=== PATIENT | male | born 1965 | race American Indian/Alaskan Native ===

== ENCOUNTER 2020-06-08 14:12 | Inpatient (IN) | payer OTHER ==
[~2020-06-08 14:12] MED LIST: HEPARIN 10,000 UNITS/10 ML VIAL IV ONE; fentaNYL 100 MCG/2 ML INJ IV ONE
[2020-06-08] MEDS ORDERED: MORPHINE 4 MG/1 ML INJ IV ONE (14:25)
[2020-06-08] MEDS ORDERED: ONDANSETRON 4 MG/2 ML INJ IV ONE (14:26)
[2020-06-08] MEDS ORDERED: HEPARIN/NS 5000 UNIT/500ML 1,000 ML IR ONE (14:30)
[2020-06-08] MEDS ORDERED: HEPARIN 1,000 UNIT/1 ML VIAL IV ONE (14:30)
[2020-06-08] MEDS ORDERED: NITROGLYCERIN SYRINGE 3 ML ONE (14:31)
[2020-06-08] MEDS ORDERED: MIDAZOLAM 2 MG/2 ML INJ ONE ×2 (14:31→14:59)
[2020-06-08] MEDS ORDERED: VERAPAMIL 5 MG/2 ML INJ ONE (14:31)
[2020-06-08] MEDS ORDERED: fentaNYL 100 MCG/2 ML INJ ONE ×3 (14:31→14:59)
[2020-06-08] MEDS ORDERED: SODIUM CHLORIDE 0.9% 1000 ML 1,000 ML ONE ×2 (14:32→17:14)
[2020-06-08] MEDS ORDERED: NITROGLYCERIN 2% OINT 1 GM TP ONE (14:37)
--- NOTE | 2020-06-08 14:37 | Emergency Department Report ---
ED Chest Pain HPI - General Chief Complaint: Chest Pain Stated Complaint: CHEST PAIN Time Seen by Provider: 06/08/20 14:31 Source: patient, EMS Mode of arrival: Stretcher Limitations: No Limitations - History of Present Illness Initial Comments: This is a 55-year-old man who is status post a PCI at [place] approximately 3 weeks ago. He is a poorly cooperative historian. He does appear to be in substantial pain from an acute coronary syndrome. His EKG was consistent with anterior ST elevation PR. I obtained the EKG from the transporting medics but d id not have access to it prior. The first 2 EKGs were consistent enough to call a STEMI code which was done. The EKGs were text to the on-call software trainer. Repeat EKG was done promptly upon gurney placement. In my opinion it was consistent with anterior STEMI. This was also text to the under trimmer Dr. Dewey who agrees with transfer to the Engineering [facility]. I accompanied the patient to the Engineering Drafter until Dr. Dewey was physically present. Patient continued to be quite anxious. He was somewhat diaphoretic. He was given a titrated dose of analgesia (morphine). He had already received 4 baby aspirin in the field. He was given 4000 units of heparin IV bolus. Patient seen to be stating that his first cath was in 2012. Apparently he has had 2 prior PCI's. He appears to have told the medics that he had 1 additional blocked vessel seen on cardiac cath at [place] which was not stented. Patient denied any recent substance abuse. He states he "smokes a cigar every now and then". Complaint: chest pain (Onset 1/2-hour prior to medic arrival) -: Gradual, hour(s) Onset: during rest Pain Location: substernal Pain Radiation: RUE Severity: severe Severity scale (0 -10): 10 Quality: other (Patient would not describe but states similar to prior pre-PCI pain) Consistency: constant Improves With: nothing Worsens With: nothing Context: other (Coronary artery disease) re: diaphoresis, dyspnea Other Symptoms: denies: cough, fever, syncope Treatments Prior to Arrival: aspirin - Related Data Allergies Allergy/AdvReac Type Severity Reaction Status Date / Time No Known Allergies Allergy Unverified 06/08/20 14:25 Heart Score - HEART Score History: Highly suspicious EKG: Significant ST-depression Age: 45-65 Risk factors: > 3 risk factors or hx of atherosclerotic disease Troponin: 1-3x normal limit HEART Score: 8 - EKG Read Time Time EKG Completed: 14:16 (Approximate) EKG Read Time: 14:16 (Read immediately) - Critical Actions Critical Actions: >7 pts:50-65% risk of adverse cardiac event. Early invasive measures ED Review of Systems ROS: Stated complaint: CHEST PAIN Other details as noted in HPI Comment: Unobtainable due to pts medical conditions ED Past Medical Hx - Past Medical History Hx Hypertension: Yes - Surgical History Hx Coronary Stent: Yes (x2) - Social History Smoking Status: Current Some Day Smoker Substance Use Type: None ED Physical Exam - General Limitations: Physical Limitation General appearance: alert, other (And the stress) - Head Head exam: Present: atraumatic, normocephalic - Eye Eye exam: Present: normal appearance. Absent: scleral icterus - ENT ENT exam: Present: mucous membranes moist - Neck Neck exam: Present: normal inspection - Respiratory Respiratory exam: Present: normal lung sounds bilaterally. Absent: respiratory distress - Cardiovascular Cardiovascular Exam: Present: regular rate, normal rhythm. Absent: systolic murmur, diastolic murmur, rubs, gallop - GI/Abdominal GI/Abdominal exam: Present: soft, normal bowel sounds. Absent: distended, tenderness, guarding, rebound - Rectal Rectal exam: Present: deferred - Extremities Exam Extremities exam: Present: normal inspection - Back Exam Back exam: Present: normal inspection - Neurological Exam Neurological exam: Present: alert, oriented X3, CN II-XII intact (As tested). Absent: motor sensory deficit - Psychiatric Psychiatric exam: Present: agitated, anxious - Skin Skin exam: Present: warm, dry, intact, normal color. Absent: rash ED Course Vital Signs 06/08/20 06/08/20 06/08/20 14:13 14:22 14:32 Temperature 99 F Pulse Rate 110 H 112 H 111 H Respiratory 22 22 25 H Rate Blood Pressure 141/93 146/92 149/99 [Left] O2 Sat by Pulse 100 100 100 Oximetry - Reevaluation(s) Reevaluation #1: Patient arrived in the emergency department demanding immediate treatment by a software trainer in the Engineering Dra[facility]. He felt certain he was having a recurrent PR. Cardiology was contacted prior to patient encounter. Prehospital EKGs were text. The patient was quite expeditiously transferred to the Engineering Drafter. I accompanied him to the Engineering Drafter to have physician oversight there while he was prepped by the assessment technician. He was given analgesia and heparin. He remained hemodynamically stable. arrived and assumed care. 06/08/20 15:01 YENY score - Yeny Score Age > 65: (0) No Aspirin use within the Past 7 Days: (1) Yes 3 or more CAD Risk Factors: (1) Yes 2 or more Angina events in past 24 hrs: (0) No Known CAD with more than 50% Stenosis: (1) Yes Elevated Cardiac Markers: (1) Yes ST Deviation Greater than 0.5mm: (1) Yes (Troponin not yet known) YENY Score: 5 ED Medical Decision Making - Lab Data Result diagrams: 06/08/20 14:23 Laboratory Results - last 24 hr 06/08/20 06/08/20 06/08/20 14:23 14:23 14:23 WBC 5.6 RBC 4.48 Hgb 15.9 H Hct 45.7 H MCV 102 H MCH 35 H MCHC 35 H RDW 14.2 Plt Count 287 Lymph % (Auto) 37.8 H [place] % (Auto) 10.5 H Eos % (Auto) 0.6 Baso % (Auto) 0.9 Lymph # (Auto) 2.1 [place] # (Auto) 0.6 Eos # (Auto) 0.0 Baso # (Auto) 0.1 Seg Neutrophils % 50.2 Seg Neutrophils # 2.8 PT 11.8 L INR 0.89 APTT 26.8 Sodium 135 L Potassium 3.4 L Chloride 98.7 Carbon Dioxide 26 Anion Gap 14 BUN 14 Creatinine 1.1 Estimated GFR > 60 BUN/Creatinine Ratio 13 Glucose 139 H Calcium 9.4 Magnesium Total Bilirubin AST ALT Alkaline Phosphatase Total Creatine Kinase CK-MB (CK-2) CK-MB (CK-2) Rel Index Troponin T 0.099 H NT-Pro-B Natriuret Pep Total Protein Albumin Albumin/Globulin Ratio 06/08/20 14:23 WBC RBC Hgb Hct MCV MCH MCHC RDW Plt Count Lymph % (Auto) [place] % (Auto) Eos % (Auto) Baso % (Auto) Lymph # (Auto) [place] # (Auto) Eos # (Auto) Baso # (Auto) Seg Neutrophils % Seg Neutrophils # PT INR APTT Sodium Potassium Chloride Carbon Dioxide Anion Gap BUN Creatinine Estimated GFR BUN/Creatinine Ratio Glucose Calcium Magnesium 2.10 Total Bilirubin 0.70 AST 29 ALT 21 Alkaline Phosphatase 97 Total Creatine Kinase 621 H CK-MB (CK-2) 7.8 H CK-MB (CK-2) Rel Index 1.2 Troponin T NT-Pro-B Natriuret Pep 1621 H Total Protein 6.8 Albumin 4.1 Albumin/Globulin Ratio 1.5 - EKG Data -: EKG Interpreted by Me EKG shows normal: sinus rhythm Rate: normal - EKG Data ST elevation noted in the anterior leads consistent with anterior STEMI pattern 06/08/20 15:05 Critical Care Time: Yes Critical care time in (mins) excluding proc time.: 40 Critical care attestation.: If time is entered above; I have spent that time in minutes in the direct care of this critically ill patient, excluding procedure time. ED Disposition Clinical Impression: ST elevation PR (STEMI) Qualifiers: Involved coronary artery: unspecified coronary artery Qualified Code(s): I21.3 - ST elevation (STEMI) myocardial infarction of unspecified site Disposition: OP ADMIT IP TO THIS HOSP Is pt being admited?: Yes Does the pt Need Aspirin: Yes Condition: Stable Time of Disposition: 15:06
[2020-06-08 14:44] LABS: Basophils # (Auto) 0.1 K/mm3 (0.0-0.1); Basophils % (Auto) 0.9 % (0.0-1.8); Eosinophils % (Auto) 0.6 % (0.0-4.3); Hematocrit 45.7 % (35.5-45.6); Hemoglobin 15.9 gm/dl (11.8-15.2); Lymphocytes # (Auto) 2.1 K/mm3 (1.2-5.4); Lymphocytes % (Auto) 37.8 % (13.4-35.0); Mean Corpuscular HGB Conc 35 % (32-34); Mean Corpuscular Volume 102 fl (84-94); Monocytes # (Auto) 0.6 K/mm3 (0.0-0.8); Monocytes % (Auto) 10.5 % (0.0-7.3); Platelet Count 287 K/mm3 (140-440); Red Blood Count 4.48 M/mm3 (3.65-5.03); Red Cell Distribution Width 14.2 % (13.2-15.2)
[2020-06-08] MEDS ORDERED: MORPHINE 2 MG/1 ML INJ ONE (14:44)
[2020-06-08] MEDS ORDERED: MORPHINE 2 MG/1 ML INJ IV ONE ×2 (14:44→22:56)
[2020-06-08 14:55] LABS: INR 0.89 (0.87-1.13)
[2020-06-08 14:56] LABS: Partial Thromboplastin Time 26.8 Sec. (24.2-36.6)
[2020-06-08] MEDS ORDERED: ONDANSETRON 4 MG/2 ML INJ ONE (14:59)
[2020-06-08 15:00] LABS: BUN/Creatinine Ratio 13; Blood Urea Nitrogen 14 mg/dL (9-20); Calcium 9.4 mg/dL (8.4-10.2); Creatine Kinase MB 7.8 ng/mL (0.0-4.0); Hemolysis Index 4
[2020-06-08 15:02] LABS: Alanine Aminotransferase 21 units/L (7-56); Albumin 4.1 g/dL (3.9-5)
[2020-06-08] MEDS: LIDOCAINE (2%) 20 MG/1 ML VIAL 20 ML MDV INFILTRATI ONE ×2 (15:03→15:35)
[2020-06-08] MEDS: HEPARIN 10,000 UNITS/10 ML VIAL ONE ×3 (15:05→15:47)
--- NOTE | 2020-06-08 15:08 | History and Physical Report ---
History of Present Illness Date of examination: 06/08/20 Date of admission: 06/08/2020 Chief complaint: Severe chest pain for 30 minutes prior to ED arrival History of present illness: 55-year-old AAM who is status post a PCI at [place] approximately 3 weeks ago with 2 stents comes in for severe substernal chest pain since am.Pain is 10/10.Diahoresis present .No radiation.Some SOB present.Pain is sharp in nature .EMS sent a EKG which was consitent with Acute ND and COde STEMI was initiated.Was taken to photo lab specialist directly.Had a obstructed diagonal which was stented.LAD stents were patent.Pain started 40 minutes prior to arrival. Patient continued to be quite anxious. He was somewhat diaphoretic. He was given a titrated dose of analgesia (morphine). He had already received 4 baby aspirin in the field. He was given 4000 units of heparin IV bolus. Patient denied any recent substance abuse. He states he "smokes a cigar every now and then". Heart Score - HEART Score History: Highly suspicious EKG: Significant ST-depression Age: 45-65 Risk factors: > 3 risk factors or hx of atherosclerotic disease Troponin: 1-3x normal limit HEART Score: 8 - EKG Read Time Time EKG Completed: 14:16 (Approximate) EKG Read Time: 14:16 (Read immediately) - Critical Actions Critical Actions: >7 pts:50-65% risk of adverse cardiac event. Early invasive measures - Past Medical History --Hypertension: Yes - Surgical History --Coronary Stent: Yes (x2) - Social History Smoking Status: Current Some Day Smoker Substance Use Type: None Review of Systems ROS: Stated complaint: CHEST PAIN Other details as noted in HPI Comment: Unobtainable due to pts medical conditions Medications and Allergies Allergies Allergy/AdvReac Type Severity Reaction Status Date / Time No Known Allergies Allergy Unverified 06/08/20 14:25 Exam - Constitutional Vitals: Temp Pulse Resp BP Pulse Ox 99 F 111 H 25 H 149/99 100 06/08/20 14:13 06/08/20 14:32 06/08/20 14:32 06/08/20 14:32 06/08/20 14:32 General appearance: Present: severe distress, well-nourished - EENT Eyes: Present: PERRL ENT: hearing intact, clear oral mucosa - Neck Neck: Present: supple, normal ROM - Respiratory Respiratory effort: normal Respiratory: bilateral: CTA - Cardiovascular Heart rate: 110 Rhythm: regular Heart Sounds: Present: S1 & S2. Absent: rub, click - Extremities Extremities: no ischemia, pulses intact, pulses symmetrical, No edema Peripheral Pulses: within normal limits - Abdominal General gastrointestinal: Present: soft, non-tender, non-distended, normal bowel sounds Male genitourinary: Present: normal - Integumentary Integumentary: Present: clear, warm, dry - Musculoskeletal Musculoskeletal: gait normal, strength equal bilaterally - Psychiatric Psychiatric: appropriate mood/affect, intact judgment & insight - Neurologic Neurologic: CNII-XII intact, moves all extremities - Allied Health Allied health notes reviewed: nursing, case management HEART Score - HEART Score EKG: Significant ST-depression Age: 45-65 Risk factors: > 3 risk factors or hx of atherosclerotic disease Troponin: Troponin T 0.099 ng/mL (0.00-0.029) H 06/08/20 14:23 Troponin: 1-3x normal limit - Critical Actions Critical Actions: >7 pts:50-65% risk of adverse cardiac event. Early invasive measures Results - Labs CBC & Chem 7: 06/09/20 04:36 06/09/20 04:36 Labs: Laboratory Last Values WBC 5.6 K/mm3 (4.5-11.0) 06/08/20 14:23 RBC 4.48 M/mm3 (3.65-5.03) 06/08/20 14:23 Hgb 15.9 gm/dl (11.8-15.2) H 06/08/20 14:23 Hct 45.7 % (35.5-45.6) H 06/08/20 14:23 MCV 102 fl (84-94) H 06/08/20 14:23 MCH 35 pg (28-32) H 06/08/20 14:23 MCHC 35 % (32-34) H 06/08/20 14:23 RDW 14.2 % (13.2-15.2) 06/08/20 14:23 Plt Count 287 K/mm3 (140-440) 06/08/20 14:23 Lymph % (Auto) 37.8 % (13.4-35.0) H 06/08/20 14:23 [place] % (Auto) 10.5 % (0.0-7.3) H 06/08/20 14:23 Eos % (Auto) 0.6 % (0.0-4.3) 06/08/20 14:23 Baso % (Auto) 0.9 % (0.0-1.8) 06/08/20 14:23 Lymph # (Auto) 2.1 K/mm3 (1.2-5.4) 06/08/20 14:23 [place] # (Auto) 0.6 K/mm3 (0.0-0.8) 06/08/20 14:23 Eos # (Auto) 0.0 K/mm3 (0.0-0.4) 06/08/20 14:23 Baso # (Auto) 0.1 K/mm3 (0.0-0.1) 06/08/20 14:23 Seg Neutrophils % 50.2 % (40.0-70.0) 06/08/20 14:23 Seg Neutrophils # 2.8 K/mm3 (1.8-7.7) 06/08/20 14:23 PT 11.8 Sec. (12.2-14.9) L 06/08/20 14:23 INR 0.89 (0.87-1.13) 06/08/20 14:23 APTT 26.8 Sec. (24.2-36.6) 06/08/20 14:23 Sodium 135 mmol/L (137-145) L 06/08/20 14:23 Potassium 3.4 mmol/L (3.6-5.0) L 06/08/20 14:23 Chloride 98.7 mmol/L (98-107) 06/08/20 14:23 Carbon Dioxide 26 mmol/L (22-30) 06/08/20 14:23 Anion Gap 14 mmol/L 06/08/20 14:23 BUN 14 mg/dL (9-20) 06/08/20 14:23 Creatinine 1.1 mg/dL (0.8-1.3) 06/08/20 14:23 Estimated GFR > 60 ml/min 06/08/20 14:23 BUN/Creatinine Ratio 13 % 06/08/20 14:23 Glucose 139 mg/dL (75-100) H 06/08/20 14:23 Calcium 9.4 mg/dL (8.4-10.2) 06/08/20 14:23 Magnesium 2.10 mg/dL (1.7-2.3) 06/08/20 14:23 Total Bilirubin 0.70 mg/dL (0.1-1.2) 06/08/20 14:23 AST 29 units/L (5-40) 06/08/20 14:23 ALT 21 units/L (7-56) 06/08/20 14:23 Alkaline Phosphatase 97 units/L (35-129) 06/08/20 14:23 Total Creatine Kinase 621 units/L (55-170) H 06/08/20 14:23 CK-MB (CK-2) 7.8 ng/mL (0.0-4.0) H 06/08/20 14:23 CK-MB (CK-2) Rel Index 1.2 (0-4) 06/08/20 14:23 Troponin T 0.099 ng/mL (0.00-0.029) H 06/08/20 14:23 NT-Pro-B Natriuret Pep 1621 pg/mL (0-900) H 06/08/20 14:23 Total Protein 6.8 g/dL (6.3-8.2) 06/08/20 14:23 Albumin 4.1 g/dL (3.9-5) 06/08/20 14:23 Albumin/Globulin Ratio 1.5 % 06/08/20 14:23 Short CBC 06/08/20 06/09/20 Range/Units 14:23 04:36 WBC 5.6 6.0 (4.5-11.0) K/mm3 Hgb 15.9 H 13.8 (11.8-15.2) gm/dl Hct 45.7 H 40.4 (35.5-45.6) % Plt Count 287 254 (140-440) K/mm3 BMP 06/08/20 06/09/20 14:23 04:36 Sodium 135 L 135 L Potassium 3.4 L 3.8 Chloride 98.7 102.7 Carbon Dioxide 26 23 BUN 14 10 Creatinine 1.1 1.0 Glucose 139 H 128 H Calcium 9.4 8.5 Cardiac Enzymes 06/08/20 06/08/20 06/08/20 Range/Units 14:23 14:23 19:08 Total Creatine Kinase 621 H (55-170) units/L CK-MB (CK-2) 7.8 H (0.0-4.0) ng/mL Troponin T 0.099 H 1.250 H* D (0.00-0.029) ng/mL 06/08/20 Range/Units 22:50 Total Creatine Kinase (55-170) units/L CK-MB (CK-2) (0.0-4.0) ng/mL Troponin T 2.140 H* D (0.00-0.029) ng/mL Liver Function 06/08/20 06/09/20 Range/Units 14:23 04:36 Total Bilirubin 0.70 0.80 (0.1-1.2) mg/dL Direct Bilirubin < 0.2 (0-0.2) mg/dL AST 29 113 H (5-40) units/L ALT 21 29 (7-56) units/L Alkaline Phosphatase 97 76 (35-129) units/L Albumin 4.1 3.2 L (3.9-5) g/dL Urine 06/08/20 Range/Units 14:32 Urine Color Straw (Yellow) Urine pH 7.0 (5.0-7.0) Ur Specific [place] 1.049 H (1.003-1.030) Urine Protein <15 mg/dl (Negative) mg/dL Urine Glucose (UA) 50 (Negative) mg/dL - Imaging and Cardiology EKG: report reviewed (Ant erior STEMI ) Chest x-ray: report reviewed (NAF) Assessment and Plan Assessment and plan: CCT 40 minutes Advance Directives: Yes (Full code) VTE prophylaxis?: Chemical Plan of care discussed with patient/family: Yes - Patient Problems (1) STEMI (ST elevation myocardial infarction) Current Visit: Yes Status: Acute Qualifiers: Involved coronary artery: other coronary artery Qualified Code(s): I21.29 - ST elevation (STEMI) myocardial infarction involving other sites Plan to address problem: Diagonal was obstructed Had PCI and was stented D/w Cardiology Dr Dewey Patient to be on Brilinta Bid Aggrastat was given in photo lab specialist. Cont ICU monitoring (2) HTN (hypertension) Current Visit: Yes Status: Chronic Qualifiers: Hypertension type: essential hypertension Qualified Code(s): I10 - Essential (primary) hypertension Plan to address problem: Cont Beta fe and ACEI (3) CAD (coronary artery disease) Current Visit: Yes Status: Acute Qualifiers: Coronary Disease-Associated Artery/Lesion type: [place] artery [place] vs. transplanted heart: [place] heart Associated angina: with unstable angina Qualified Code(s): I25.110 - Atherosclerotic heart disease of [place] coronary artery with unstable angina pectoris Plan to address problem: Patient had PCI today with 3 rd stent in Diagonal ASA and Brilinta for now High intensity statins (4) Hypokalemia Current Visit: Yes Status: Acute Plan to address problem: Supplemented (5) Hyponatremia Current Visit: Yes Status: Acute Plan to address problem: Mild IV NS for now (6) Malnutrition Current Visit: Yes Status: Chronic Qualifiers: Protein-calorie malnutrition severity: mild Plan to address problem: Dietary supplements (7) Cocaine abuse Current Visit: Yes Status: Chronic Plan to address problem: Counselled about possible vasospasm and ND (8) Nicotine dependence Current Visit: Yes Status: Chronic Qualifiers: Nicotine product type: cigarettes Plan to address problem: On Nicoderm patch (9) DVT prophylaxis Current Visit: Yes Status: Acute Plan to address problem: On Brilinta and GI prophylaxis
[2020-06-08 15:09] LABS: Bilirubin,Direct < 0.2 mg/dL (0-0.2)
[2020-06-08] MEDS ORDERED: MORPHINE 4 MG/1 ML INJ IV PRN (15:30)
[2020-06-08] MEDS ORDERED: ACETAMINOPHEN 325 MG TAB PO PRN (15:30)
[2020-06-08] MEDS ORDERED: ONDANSETRON 4 MG/2 ML INJ IV PRN (15:30)
[2020-06-08] MEDS ORDERED: oxyCODONE /ACETAMINOPHEN 5-325MG TAB PO PRN (15:30)
[2020-06-08] MEDS ORDERED: SODIUM CHLORIDE 0.9% 1000 ML 1,000 ML IV SCH (15:30)
[2020-06-08] MEDS ORDERED: HEPARIN/NS 5000 UNIT/500ML 500 ML IR ONE (15:31)
[2020-06-08] MEDS ORDERED: TIROFIBAN/NS 12,500 MCG/250 ML BAG IV ONE (15:41)
[2020-06-08] MEDS ORDERED: EPINEPHrine 1 MG/10 ML SYRINGE ONE (15:53)
[2020-06-08] MEDS ORDERED: PHENYLEPHRINE/NS 1,000 MCG/10 ML SYRINGE (OR USE) IV ONE (15:53)
[2020-06-08] MEDS ORDERED: LIDOCAINE PF 100 MG/5 ML (CARDIAC SYRINGE) IV ONE (15:53)
[2020-06-08] MEDS ORDERED: ATROPINE 0.1% (1 MG/10 ML) CARDIAC SYRINGE ONE (15:53)
[2020-06-08] MEDS ORDERED: TICAGRELOR 90 MG TAB ONE (16:23)
[2020-06-08] MEDS ORDERED: ALUM-MAG HYDROXIDE-SIMETHICONE 200-200-20MG/5ML ORAL LIQD 30 ML ONE (16:24)
[2020-06-08] MEDS ORDERED: MORPHINE 2 MG/1 ML INJ IV PRN ×3 (17:02→22:38)
[2020-06-08] MEDS: METOPROLOL SUCCINATE XL 50 MG TAB PO SCH (19:10)
--- NOTE | 2020-06-08 19:21 | Cardiac Catherization Report ---
CARDIAC CATHETERIZATION REPORT CLINICAL INFORMATION: The patient is a pleasant 55-year-old -[place] male admitted with chest pains. Apparently, he called EMS with severe chest pains, EKG demonstrated dynamic ST changes in the anterolateral leads. According to him he had a heart catheterization as well as stents placement in [place] approximately 3-4 weeks ago. He is a tobacco smoker, has a history of hypertension and dyslipidemia. I am not sure whether he is compliant with medications-especially DAPT. He continues to smoke tobacco after coronary stenting procedure. Reviewed his clinical presentation, EKG, after extensive discussion with the patient, we agreed to pursue for diagnostic cardiac catheterization. Risks, benefits and different options were extensively discussed with the patient. PROCEDURES PERFORMED TODAY: 1. Left heart catheterization. 2. Selective coronary angiogram. 3. LV angiogram. 4. PCI to ostium of the diagonal branch with the deployment of 2.5 x 12 mm Resolute Tavernier CORNELIA. Kissing balloons performed with 3.5 x 12 mm balloon in the mid LAD, 2.5 x 8 mm noncompliant balloon at the ostium of the diagonal branch. 5. Intracoronary nitroglycerin. DESCRIPTION OF PROCEDURE: We started the procedure with a right radial access. The right wrist area cleaned and draped in a sterile fashion. 2% lidocaine was used for local anesthesia. The right radial artery was accessed with a micropuncture needle, 6-Eston[place] slender sheath was inserted. Radial cocktail was given through the sheath. Able to engage the right coronary artery with a 5-[place] JR4 diagnostic catheter. Unable to engage left main coronary artery with multiple catheters. These are the catheters that were tried, which included JL3.5, 6-[place] JR4 diagnostic catheter. Tried EBU 3.5 guiding catheter, tried radial catheters as well as a 6-Estonian AL1 guiding catheter. Also tried XB LAD, not successful. At that point, we switched to femoral access. Right groin area was already prepped. 2% lidocaine was used for local anesthesia. Right femoral artery was accessed with a Cook needle by modified Seldinger technique and a 6-E[place]ian short sheath inserted. Able to selectively engage the left main coronary artery with 6-Estonian XB LAD 3.0 guiding catheter. Selective angiograms of the left coronary systems were obtained. After reviewing the diagnostic angiographic images, we proceeded for intervention to the ostium of the diagonal branch. HEART CATHETERIZATION FINDINGS: Left main coronary artery is a large caliber vessel, free of disease. Left circumflex coronary artery has multiple intraluminal irregularities in the proximal and distal part. Proximal stent in the left circumflex coronary artery has a mild-moderate in-stent stenosis approximately 40% in severity. OM1 is a small caliber vessel with diffuse disease. OM2 is a medium caliber vessel, which is a basically continuation of the left circumflex coronary artery, free of disease. Mid LAD has a widely patent stent noted. The principal diagonal branch is jailed, ostium has a thrombus noted with a 99% stenosis. Right coronary artery is a large caliber vessel, proximal and mid segments have approximately 60% stenosis, junction of the mid and distal segment is 100% occluded. There are left to right collaterals noted. LV ANGIOGRAM: LV angiogram was obtained in MCRAE projection. Left ventricular ejection fraction is 45%. LVEDP -- 33 mmHg. PCI to the ostium of the diagonal branch:- The patient was given heparin as an anticoagulant, maintained ACT above 200, also given 2 boluses of Aggrastat IV. The ostium of the diagonal branch was successfully crossed with a 0.014 BMW wire. Predilated with a 2.5 mm compliant balloon. Subsequently, noted to have residual stenosis, more than 70% at the ostium of the diagonal branch. At that point, I decided to stent the ostium of the diagonal branch. A 0.014 Runthrough wire was placed in the LAD. A 3.5 x 12 mm noncompliant balloon placed in the LAD, subsequently ostium of the principal diagonal branch is stented with a 2.5 x 12 mm Resolute Tavernier drug-eluting stent. The stent balloon is removed, wire was removed and the ostial stent is crushed with mid LAD balloon. After that ostial stent of the diagonal branch stent is re-crossed with a 0.014 BMW wire. Kissing balloons were performed with a 2.5 x 8 mm noncompliant balloon balloon in the ostium of the diagonal branch and 3.5 x 12 mm balloon in the mid LAD. Intracoronary nitroglycerin was given. Post-intervention angiograms demonstrated residual stenosis of 0% at the ostium of the diagonal branch with YENY-3 flow. The patient tolerated the procedure very well. While calculating the [id number] time, please consider the difficulties that I had in engaging the left main coronary artery via right radial access, multiple catheters were tried, not successful. Subsequently changed to right femoral approach. CONCLUSIONS: 1. The above study showed moderate disease in the left circumflex coronary system with a 40% in-stent stenosis in the proximally placed stent. 2. Patent stent noted in the mid LAD. 3. Ostium of the diagonal branch has 90% stenosis with haziness noted to have thrombus. Subsequently, that area was stented with 2.5 x 12 mm Resolute Tavernier drug-eluting stent, kissing balloons were performed with balloon in the mid LAD as well as a balloon at the ostium of the diagonal branch and results were excellent with YENY 3 flow in the diagonal branch. Junction of the mid and distal RCA is 100% occluded, which is a chronic total occlusion, left to right collaterals noted. LVEF 45%, LVEDP -- 33 mmHg. RECOMMENDATIONS: 1. Aspirin 81 mg p.o. every day, uninterruptedly for the rest of the life. 2. Brilinta 90 mg p.o. b.i.d., uninterruptedly for at least 1 year. 3. Aggressive statin therapy, optimal blood pressure control. 4. Echo to evaluate LVEF as well as PA pressures. Tobacco cessation, adherence to medical therapy, especially DAPT-will determine his long-term overall prognosis, explained to the patient. The patient is going to be admitted to ICU, the sheath in the right groin will be removed once ACT is less than 150, the patient was explained. All these events were explained to the patient as well as his , Ana Maria Rubi at [phone]. Thanks for letting me to participate in the care of the patient. JOB# [id number] RONNA/ALISTAIR CLEMENTS
[2020-06-08 20:57] LABS: Chol/HDL Ratio 2.89 %
[2020-06-08 21:42] LABS: Bilirubin,Urine NEG (Negative); Blood,Urine SM (Negative); Color,Urine Straw (Yellow); Mucus,Urine FEW /HPF; Protein,Urine <15 mg/dL mg/dL (Negative); Urobilinogen,Urine < 2.0 mg/dL (<2.0)
[2020-06-08] MEDS: TICAGRELOR 90 MG TAB PO SCH (21:45)
[2020-06-08 21:51] LABS: Amphetamine Screen,Urine Negative; Cannabinoid Screen,Urine Negative; Methadone Screen,Urine Negative; Opiate Screen,Urine Negative
[2020-06-08 22:15] LABS: Benzodiazepines Screen,Urine Positive; Cocaine Screen,Urine Positive
--- NOTE | 2020-06-08 22:35 | XRay Report ---
CHEST 1 VIEW INDICATION / CLINICAL INFORMATION: post pci. COMPARISON: None available. FINDINGS: SUPPORT DEVICES: None. HEART / MEDIASTINUM: No significant abnormality. LUNGS / PLEURA: No significant pulmonary or pleural abnormality. No pneumothorax. ADDITIONAL FINDINGS: No significant additional findings. IMPRESSION: No acute pulmonary or pleural abnormality Signer Name: Jhonathan James MD FACR Signed: 06/08/2020 10:30 PM Workstation Name: [id number]
[2020-06-09 04:47] LABS: Basophils % (Auto) 0.6 % (0.0-1.8); Eosinophils % (Auto) 0.5 % (0.0-4.3); Hematocrit 40.4 % (35.5-45.6); Hemoglobin 13.8 gm/dl (11.8-15.2); Lymphocytes # (Auto) 0.9 K/mm3 (1.2-5.4); Lymphocytes % (Auto) 14.2 % (13.4-35.0); Mean Corpuscular HGB Conc 34 % (32-34); Mean Corpuscular Volume 102 fl (84-94); Monocytes # (Auto) 0.6 K/mm3 (0.0-0.8); Monocytes % (Auto) 9.5 % (0.0-7.3); Platelet Count 254 K/mm3 (140-440); Red Blood Count 3.97 M/mm3 (3.65-5.03); Red Cell Distribution Width 14.2 % (13.2-15.2)
[2020-06-09 05:10] LABS: Alanine Aminotransferase 29 units/L (7-56); Albumin 3.2 g/dL (3.9-5); BUN/Creatinine Ratio 10; Blood Urea Nitrogen 10 mg/dL (9-20); Calcium 8.5 mg/dL (8.4-10.2); Hemolysis Index 6
[2020-06-09] MEDS: HYDROcodone/ACETAMINOPHEN 5-325 MG TAB PO PRN ×2 (08:43→17:55)
[2020-06-09] MEDS: ASPIRIN EC 81 MG TAB PO SCH (09:52)
[2020-06-09] MEDS: METOPROLOL SUCCINATE XL 50 MG TAB PO SCH (09:52)
[2020-06-09] MEDS: TICAGRELOR 90 MG TAB PO SCH ×2 (09:53→22:50)
--- NOTE | 2020-06-09 10:45 | Progress Note ---
Assessment and Plan Acute RI s/p PCI of the diagonal branch using Resolute drug eluting stents patent mid LAD stent mild in-stent restenosis of the proximal LCx chronic occlusion of the distal RCA with [id number]-[id number] collaterals EF 45% Anterior STEMI at [facility] 05/16/2020 s/p PCI of the mid LAD LVEF 30% by echo 05/16/2020 noncompliant with Effient since discharged from [facility] 05/17/2020 Poly-substance abuse Recommend: Patient reports noncompliance with Effient due to cost. Will recommend social media campaign manager consultation for assistance with Brilinta to take for 1 year. Continue current medical therapy. Okay for transfer to telemetry. Subjective Date of service: 06/09/20 Interval history: Patient is resting in bed comfortably. He denies chest pain. No hematoma or edema of right groin cath site Objective Vital Signs Temp Pulse Pulse Resp BP BP Pulse Ox 06/09/20 10:20 71 19 115/71 98 06/09/20 10:10 79 22 111/60 97 06/09/20 10:00 87 25 H 111/60 87 06/09/20 09:52 83 117/57 06/09/20 09:50 85 17 117/57 100 06/09/20 09:40 80 24 108/65 99 06/09/20 09:30 76 18 108/65 98 06/09/20 09:20 75 22 116/70 99 06/09/20 09:10 91 H 26 H 123/90 100 06/09/20 09:00 98 H 22 128/92 99 06/09/20 08:50 88 32 H 128/92 100 06/09/20 08:43 20 06/09/20 08:40 96 H 22 121/80 99 06/09/20 08:30 96 H 18 121/80 100 06/09/20 08:25 99 06/09/20 08:20 82 24 121/80 100 06/09/20 08:10 82 19 116/72 100 06/09/20 08:00 97.9 F 82 82 20 116/72 100 06/09/20 07:50 94 H 23 122/78 100 06/09/20 07:40 84 21 124/78 99 06/09/20 07:30 85 22 124/78 99 06/09/20 07:20 83 15 116/70 99 06/09/20 07:10 85 24 124/71 99 06/09/20 07:00 81 19 124/71 99 06/09/20 06:50 94 H 19 125/75 100 06/09/20 06:40 91 H 18 128/68 99 06/09/20 06:30 83 21 128/68 99 06/09/20 06:20 82 20 128/68 100 06/09/20 06:10 82 22 128/68 99 06/09/20 06:00 84 22 128/68 100 06/09/20 05:50 80 20 128/68 100 06/09/20 05:40 83 20 128/68 100 06/09/20 05:30 78 20 128/68 100 06/09/20 05:20 81 21 128/68 100 06/09/20 05:10 88 13 128/68 100 06/09/20 05:00 84 19 128/68 99 06/09/20 04:50 80 22 125/68 98 06/09/20 04:40 78 22 98 06/09/20 04:30 88 16 133/85 100 06/09/20 04:20 74 20 133/85 99 06/09/20 04:10 78 19 135/83 98 06/09/20 04:00 98.4 F 81 76 21 135/83 99 06/09/20 03:50 81 20 133/77 99 06/09/20 03:40 77 23 137/82 99 06/09/20 03:30 88 22 137/82 100 06/09/20 03:20 81 22 135/78 99 06/09/20 03:10 85 23 135/82 99 06/09/20 03:00 80 22 135/82 98 06/09/20 02:50 84 23 139/83 97 06/09/20 02:40 80 20 136/79 98 06/09/20 02:30 77 20 136/79 99 06/09/20 02:20 78 18 124/80 99 06/09/20 02:10 79 22 132/87 98 06/09/20 02:00 81 19 132/87 100 06/09/20 01:50 72 17 134/79 99 06/09/20 01:40 87 24 135/83 99 06/09/20 01:30 83 21 135/83 98 06/09/20 01:20 83 15 125/80 98 06/09/20 01:10 82 17 131/79 99 06/09/20 01:00 83 19 131/79 100 06/09/20 00:50 87 21 138/79 99 06/09/20 00:40 84 19 133/74 99 06/09/20 00:30 77 20 133/74 100 06/09/20 00:20 85 22 133/82 99 06/09/20 00:10 86 20 130/82 99 06/09/20 00:00 98.7 F 90 93 H 23 130/82 99 06/08/20 23:50 85 21 128/80 98 06/08/20 23:40 88 23 125/80 100 06/08/20 23:30 86 16 125/80 99 06/08/20 23:20 87 21 131/77 100 06/08/20 23:10 87 21 123/74 100 06/08/20 23:06 89 20 123/74 100 06/08/20 23:00 85 15 123/74 100 06/08/20 22:57 22 06/08/20 22:56 90 20 129/88 06/08/20 22:50 85 20 129/88 98 06/08/20 22:40 88 22 133/88 97 06/08/20 22:30 88 24 133/88 100 06/08/20 22:20 84 20 128/88 100 06/08/20 22:10 87 19 118/81 98 06/08/20 22:00 93 H 14 118/81 100 06/08/20 21:55 14 06/08/20 21:50 94 H 12 129/81 06/08/20 21:42 96 06/08/20 21:40 90 19 130/94 96 06/08/20 21:30 93 H 31 H 130/94 97 06/08/20 21:20 91 H 16 115/94 99 06/08/20 21:10 89 16 130/89 99 06/08/20 21:00 88 20 130/89 98 06/08/20 20:50 94 H 16 124/75 98 06/08/20 20:40 89 16 121/87 97 06/08/20 20:30 97 H 19 121/87 98 06/08/20 20:20 81 21 129/85 98 06/08/20 20:10 100 H 22 123/88 97 06/08/20 20:00 98.1 F 99 H 90 17 123/88 98 06/08/20 19:50 86 14 127/85 98 06/08/20 19:40 96 H 16 125/81 97 06/08/20 19:30 94 H 18 119/81 98 06/08/20 19:20 96 H 22 132/84 97 06/08/20 19:10 94 H 13 131/89 98 06/08/20 19:00 97 H 20 131/89 97 06/08/20 18:50 101 H 18 132/94 97 06/08/20 18:40 97 H 19 129/92 98 06/08/20 18:30 100 H 21 129/92 99 06/08/20 18:21 92 H 06/08/20 18:20 101 H 20 135/86 99 06/08/20 18:10 102 H 21 137/91 100 06/08/20 18:00 102 H 20 137/91 99 06/08/20 17:50 102 H 20 119/86 06/08/20 17:43 130/87 06/08/20 16:56 100 H 06/08/20 14:32 111 H 25 H 149/99 100 06/08/20 14:22 112 H 22 146/92 100 06/08/20 14:13 99 F 110 H 22 141/93 100 - Labs and Meds Cardiac Enzymes 06/08/20 06/09/20 Range/Units 14:23 04:36 AST 29 113 H (5-40) units/L CK-MB (CK-2) 7.8 H (0.0-4.0) ng/mL Coagulation 06/08/20 Range/Units 14:23 PT 11.8 L (12.2-14.9) Sec. INR 0.89 (0.87-1.13) APTT 26.8 (24.2-36.6) Sec. Lipids 06/08/20 Range/Units 19:08 Triglycerides 62 (2-149) mg/dL Cholesterol 194 (50-199) mg/dL HDL Cholesterol 67 H (40-59) mg/dL Cholesterol/HDL Ratio 2.89 % CBC 06/08/20 06/09/20 Range/Units 14:23 04:36 WBC 5.6 6.0 (4.5-11.0) K/mm3 RBC 4.48 3.97 (3.65-5.03) M/mm3 Hgb 15.9 H 13.8 (11.8-15.2) gm/dl Hct 45.7 H 40.4 (35.5-45.6) % Plt Count 287 254 (140-440) K/mm3 Lymph # (Auto) 2.1 0.9 L (1.2-5.4) K/mm3 [place] # (Auto) 0.6 0.6 (0.0-0.8) K/mm3 Eos # (Auto) 0.0 0.0 (0.0-0.4) K/mm3 Baso # (Auto) 0.1 0.0 (0.0-0.1) K/mm3 Comprehensive Metabolic Panel 06/08/20 06/08/20 06/09/20 Range/Units 14:23 14:23 04:36 Sodium 135 L 135 L (137-145) mmol/L Potassium 3.4 L 3.8 (3.6-5.0) mmol/L Chloride 98.7 102.7 (98-107) mmol/L Carbon Dioxide 26 23 (22-30) mmol/L BUN 14 10 (9-20) mg/dL Creatinine 1.1 1.0 (0.8-1.3) mg/dL Glucose 139 H 128 H (75-100) mg/dL Calcium 9.4 8.5 (8.4-10.2) mg/dL Direct Bilirubin < 0.2 (0-0.2) mg/dL Indirect Bilirubin 0.5 mg/dL AST 29 113 H (5-40) units/L ALT 21 29 (7-56) units/L Alkaline Phosphatase 97 76 (35-129) units/L Total Protein 6.8 6.0 L (6.3-8.2) g/dL Albumin 4.1 3.2 L (3.9-5) g/dL - Imaging and Cardiology EKG: report reviewed (Ant erior STEMI )
[2020-06-09] MEDS: FAMOTIDINE 20 MG TAB PO SCH (11:03)
--- NOTE | 2020-06-09 11:03 | Event Note ---
Date: 06/09/20 Patient with known CAD, acute PR a few weeks ago at [facility] and noncompliant with anticoagulation who presented yesterday with STEMI secondary to in stent thrombosis. Taken to slab inspector and reperfused, now with no chest pain. UDS was positive for Cocaine. Currently on all oral therapy and vitals are stable. Will ask cardiology about transfer to [facility], needs psych consult/eval for substance abuse.
--- NOTE | 2020-06-09 14:37 | Progress Note ---
Assessment and Plan Assessment and plan: -Cardiology and CCM consulted, appreciate recommendations -S/p PCI with CORNELIA x1 -UDS positive for benzodiazepine and cocaine -Cardiac diet -Aspirin, Lipitor, metoprolol, Brilinta -CM consulted for medical compliance -Morphine and nitroglycerin ointment as needed -Monitor blood pressure and titrate hypertensive as needed (patient takes lisinopril 10 mg at home) GI/DVT prophylaxis: Brilinta/aspirin, SCDs to bilateral lower extremities while in bed, PPI Disposition: Transfer to floor History Interval history: This is a 55-year-old male with CAD, hypertension, medical noncompliance and polysubstance abuse who had a PCI at [place] [facility] approximately 3 weeks ago who pr esented to the emergency department on 06/08 with complaints of sharp chest pain rated at 10/10 with diaphoresis and shortness of breath. EMS sent an EKG which was consistent with acute MA and code STEMI was initiated and was taken to the Quality Control Microbiologist. Left heart cath revealed obstructed diagonal branch which was stented, his mid LAD stent was patent however there was mild in-stent restenosis of the proximal left circumflex and there was chronic occlusion of the distal RCA with geio-hp-lhbzz collaterals. His ejection fraction was 45%. STEMI s/p PCI with CORNELIA x1 CAD Anterior STEMI (05/16/2020) Hypertension Polysubstance abuse 06/09: Patient complained of chest pain overnight and he received morphine. Patient does not complain of any chest pain, respiratory distress, nausea or vomiting this morning the time my examination. He is on room air. He complains of pain to groin entry site with palpation directly over site. Cardiology has cleared patient to transfer to the floor. His UDS was positive for cocaine and benzodiazepines. His morning the patient has slight hyponatremia and his hypo kalemia has resolved. Hospitalist Physical - Constitutional Vitals: Temp Pulse Resp BP Pulse Ox 98.8 F 86 16 118/82 99 06/09/20 12:00 06/09/20 14:10 06/09/20 14:10 06/09/20 14:10 06/09/20 14:10 General appearance: Present: no acute distress, well-nourished - EENT Eyes: Present: PERRL, EOM intact ENT: clear oral mucosa, dentition normal - Neck Neck: Present: normal ROM - Respiratory Respiratory effort: normal Respiratory: bilateral: CTA - Cardiovascular Rhythm: regular Heart Sounds: Present: S1 & S2. Absent: systolic murmur, diastolic murmur - Extremities Extremities: no ischemia, pulses intact, pulses symmetrical, No edema, normal temperature, normal color, Full ROM Peripheral Pulses: within normal limits - Abdominal General gastrointestinal: soft, non-tender, non-distended, normal bowel sounds - Integumentary Integumentary: Present: warm, dry - Psychiatric Psychiatric: appropriate mood/affect, cooperative - Neurologic Neurologic: CNII-XII intact, no focal deficits, moves all extremities - Allied Health Allied health notes reviewed: nursing, social work, case management HEART Score - HEART Score EKG: Significant ST-depression Age: 45-65 Risk factors: > 3 risk factors or hx of atherosclerotic disease Troponin: Troponin T 2.140 ng/mL (0.00-0.029) H* D 06/08/20 22:50 Troponin: 1-3x normal limit - Critical Actions Critical Actions: >7 pts:50-65% risk of adverse cardiac event. Early invasive measures Results - Labs CBC & Chem 7: 06/09/20 04:36 06/09/20 04:36 Labs: Laboratory Last Values WBC 6.0 K/mm3 (4.5-11.0) 06/09/20 04:36 RBC 3.97 M/mm3 (3.65-5.03) 06/09/20 04:36 Hgb 13.8 gm/dl (11.8-15.2) 06/09/20 04:36 Hct 40.4 % (35.5-45.6) 06/09/20 04:36 MCV 102 fl (84-94) H 06/09/20 04:36 MCH 35 pg (28-32) H 06/09/20 04:36 MCHC 34 % (32-34) 06/09/20 04:36 RDW 14.2 % (13.2-15.2) 06/09/20 04:36 Plt Count 254 K/mm3 (140-440) 06/09/20 04:36 Lymph % (Auto) 14.2 % (13.4-35.0) 06/09/20 04:36 [place] % (Auto) 9.5 % (0.0-7.3) H 06/09/20 04:36 Eos % (Auto) 0.5 % (0.0-4.3) 06/09/20 04:36 Baso % (Auto) 0.6 % (0.0-1.8) 06/09/20 04:36 Lymph # (Auto) 0.9 K/mm3 (1.2-5.4) L 06/09/20 04:36 [place] # (Auto) 0.6 K/mm3 (0.0-0.8) 06/09/20 04:36 Eos # (Auto) 0.0 K/mm3 (0.0-0.4) 06/09/20 04:36 Baso # (Auto) 0.0 K/mm3 (0.0-0.1) 06/09/20 04:36 Seg Neutrophils % 75.2 % (40.0-70.0) H 06/09/20 04:36 Seg Neutrophils # 4.5 K/mm3 (1.8-7.7) 06/09/20 04:36 PT 11.8 Sec. (12.2-14.9) L 06/08/20 14:23 INR 0.89 (0.87-1.13) 06/08/20 14:23 APTT 26.8 Sec. (24.2-36.6) 06/08/20 14:23 Activated Clotting Time 136 (74-137) 06/08/20 19:39 Sodium 135 mmol/L (137-145) L 06/09/20 04:36 Potassium 3.8 mmol/L (3.6-5.0) 06/09/20 04:36 Chloride 102.7 mmol/L (98-107) 06/09/20 04:36 Carbon Dioxide 23 mmol/L (22-30) 06/09/20 04:36 Anion Gap 13 mmol/L 06/09/20 04:36 BUN 10 mg/dL (9-20) 06/09/20 04:36 Creatinine 1.0 mg/dL (0.8-1.3) 06/09/20 04:36 Estimated GFR > 60 ml/min 06/09/20 04:36 BUN/Creatinine Ratio 10 % 06/09/20 04:36 Glucose 128 mg/dL (75-100) H 06/09/20 04:36 Hemoglobin A1c 5.1 % (4-6) 06/09/20 04:36 Calcium 8.5 mg/dL (8.4-10.2) 06/09/20 04:36 Magnesium 2.10 mg/dL (1.7-2.3) 06/08/20 14:23 Total Bilirubin 0.80 mg/dL (0.1-1.2) 06/09/20 04:36 Direct Bilirubin < 0.2 mg/dL (0-0.2) 06/08/20 14:23 Indirect Bilirubin 0.5 mg/dL 06/08/20 14:23 AST 113 units/L (5-40) H 06/09/20 04:36 ALT 29 units/L (7-56) 06/09/20 04:36 Alkaline Phosphatase 76 units/L (35-129) 06/09/20 04:36 Total Creatine Kinase 621 units/L (55-170) H 06/08/20 14:23 CK-MB (CK-2) 7.8 ng/mL (0.0-4.0) H 06/08/20 14:23 CK-MB (CK-2) Rel Index 1.2 (0-4) 06/08/20 14:23 Troponin T 2.140 ng/mL (0.00-0.029) H* D 06/08/20 22:50 NT-Pro-B Natriuret Pep 1621 pg/mL (0-900) H 06/08/20 14:23 Total Protein 6.0 g/dL (6.3-8.2) L 06/09/20 04:36 Albumin 3.2 g/dL (3.9-5) L 06/09/20 04:36 Albumin/Globulin Ratio 1.1 % 06/09/20 04:36 Triglycerides 62 mg/dL (2-149) 06/08/20 19:08 Cholesterol 194 mg/dL (50-199) 06/08/20 19:08 LDL Cholesterol Direct 113 mg/dL (50-130) 06/08/20 19:08 HDL Cholesterol 67 mg/dL (40-59) H 06/08/20 19:08 Cholesterol/HDL Ratio 2.89 % 06/08/20 19:08 Urine Color Straw (Yellow) 06/08/20 14:32 Urine Turbidity Clear (Clear) 06/08/20 14:32 Urine pH 7.0 (5.0-7.0) 06/08/20 14:32 Ur Specific [place] 1.049 (1.003-1.030) H 06/08/20 14:32 Urine Protein <15 mg/dl mg/dL (Negative) 06/08/20 14:32 Urine Glucose (UA) 50 mg/dL (Negative) 06/08/20 14:32 Urine Ketones Neg mg/dL (Negative) 06/08/20 14:32 Urine Blood Sm (Negative) 06/08/20 14:32 Urine Nitrite Neg (Negative) 06/08/20 14:32 Urine Bilirubin Neg (Negative) 06/08/20 14:32 Urine Urobilinogen < 2.0 mg/dL (<2.0) 06/08/20 14:32 Ur Leukocyte Esterase Neg (Negative) 06/08/20 14:32 Urine WBC (Auto) 2.0 /HPF (0.0-6.0) 06/08/20 14:32 Urine RBC (Auto) 4.0 /HPF (0.0-6.0) 06/08/20 14:32 Urine Mucus Few /HPF 06/08/20 14:32 Urine Opiates Screen Negative 06/08/20 14:32 Urine Methadone Screen Negative 06/08/20 14:32 Ur Barbiturates Screen Negative 06/08/20 14:32 Ur Phencyclidine Scrn Negative 06/08/20 14:32 Ur Amphetamines Screen Negative 06/08/20 14:32 U Benzodiazepines Scrn Positive 06/08/20 14:32 Urine Cocaine Screen Positive 06/08/20 14:32 U Marijuana (THC) Screen Negative 06/08/20 14:32 Drugs of Abuse Note Disclamer 06/08/20 14:32 [place]/IV: Voiding Method Urinal Active Medications - Current Medications Current Medications: Generic Name Dose Route Start Last Admin Trade Name Freq PRN Reason Stop Dose Admin Acetaminophen 650 mg 06/08/20 15:30 Acetaminophen 325 Mg Tab PO Q4H PRN Pain MILD(1-3)/Fever >100.5/PERRY Hydrocodone Bitart/Acetaminophen 1 each 06/08/20 16:56 06/09/20 08:43 Hydrocodone/Acetaminophen 5-325 Mg Tab PO 1 each Q8H PRN Administration Pain, Moderate (4-6) Aspirin 81 mg 06/09/20 10:00 06/09/20 09:52 Aspirin Ec 81 Mg Tab PO 81 mg QDAY ABDIAS Administration Atorvastatin Calcium 80 mg 06/08/20 22:00 06/08/20 21:45 Atorvastatin 40 Mg Tab PO 80 mg QHS ABDIAS Administration Famotidine 20 mg 06/09/20 12:00 06/09/20 11:03 Famotidine 20 Mg Tab PO 20 mg QDAY ABDIAS Administration Metoprolol Succinate 50 mg 06/08/20 18:00 06/09/20 09:52 Metoprolol Succinate Xl 50 Mg Tab PO 50 mg QDAY ABDIAS Administration Morphine Sulfate 2 mg 06/08/20 22:38 Morphine 2 Mg/1 Ml Inj IV Q4H PRN Pain, Moderate (4-6) Ondansetron HCl 4 mg 06/08/20 15:30 Ondansetron 4 Mg/2 Ml Inj IV Q8H PRN Nausea And Vomiting Sodium Chloride 10 ml 06/08/20 22:00 06/09/20 09:53 Sodium Chloride 0.9% 10 Ml Flush Syringe IV 10 ml BID ABDIAS Administration Sodium Chloride 10 ml 06/08/20 15:30 Sodium Chloride 0.9% 10 Ml Flush Syringe IV PRN PRN LINE FLUSH Ticagrelor 90 mg 06/08/20 22:00 06/09/20 09:53 Ticagrelor 90 Mg Tab PO 90 mg BID ABDIAS Administration
--- NOTE | 2020-06-10 09:03 | Progress Note ---
Assessment and Plan Assessment and plan: This is a 55-year-old male with CAD, hypertension, medical noncompliance and polysubstance abuse who had a PCI at [place] approximately 3 weeks ago who presented to the emergency department on 06/08 with complaints of sharp chest pain rated at 10/10 with diaphoresis and shortness of breath. EMS sent an EKG which was consistent with acute MS and code STEMI was initiated and was taken to the Instructor Military Science. Left heart cath revealed obstructed diagonal branch which was stented, his mid LAD stent was patent however there was mild in-stent restenosis of the proximal left circumflex and there was chronic occlusion of the distal RCA with [id number]-bp-[id number] collaterals. His ejection fraction was 45%. STEMI s/p PCI with CORNELIA x1 CAD Anterior STEMI (05/16/2020) Hypertension Polysubstance abuse 06/09: Patient complained of chest pain overnight and he received morphine. Patient does not complain of any chest pain, respiratory distress, nausea or vomiting this morning the time my examination. He is on room air. He complains of pain to groin entry site with palpation directly over site. Cardiology has cleared patient to transfer to the floor. His UDS was positive for cocaine and benzodiazepines. His morning the patient has slight hyponatremia and his hypokalemia has resolved. 06/10/2020 -Patient is admitted for STEMI due to in-stent thrombosis. Status post PCI with CORNELIA. Patient had stent recently and discharged with dual antiplatelet therapy but patient was noncompliant because could not afford it. Cardiology is following him. And will be discharged once cleared by cardiology. Case management consulted for medication assistance History Interval history: Patient was seen and evaluated this morning No chest pain or shortness of breath Hospitalist Physical - Physical exam Narrative exam: Not in cardiopulmonary distress. The patient appeared well nourished and normally developed. Vital signs as documented. Head exam is unremarkable. No scleral icterus . Neck is without jugular venous distension, thyromegaly, or carotid bruits. Lungs are clear to auscultation. Cardiac exam reveals regular rate and Rhythm. Abdominal exam reveals normal bowel sounds, nontender, no organomegaly. Extremities are nonedematous and both femoral and pedal pulses are normal. WET END SUPERVISOR: Alert and oriented 3. No focal weakness. - Constitutional Vitals: Temp Pulse Resp BP Pulse Ox 98.7 F 94 H 20 121/70 97 06/10/20 04:17 06/10/20 04:17 06/10/20 04:17 06/10/20 04:17 06/10/20 08:24 General appearance: Present: no acute distress, well-nourished HEART Score - HEART Score EKG: Significant ST-depression Age: 45-65 Risk factors: > 3 risk factors or hx of atherosclerotic disease Troponin: Troponin T 2.140 ng/mL (0.00-0.029) H* D 06/08/20 22:50 Troponin: 1-3x normal limit - Critical Actions Critical Actions: >7 pts:50-65% risk of adverse cardiac event. Early invasive measures Results - Labs CBC & Chem 7: 06/09/20 04:36 06/09/20 04:36 Labs: Laboratory Last Values WBC 6.0 K/mm3 (4.5-11.0) 06/09/20 04:36 RBC 3.97 M/mm3 (3.65-5.03) 06/09/20 04:36 Hgb 13.8 gm/dl (11.8-15.2) 06/09/20 04:36 Hct 40.4 % (35.5-45.6) 06/09/20 04:36 MCV 102 fl (84-94) H 06/09/20 04:36 MCH 35 pg (28-32) H 06/09/20 04:36 MCHC 34 % (32-34) 06/09/20 04:36 RDW 14.2 % (13.2-15.2) 06/09/20 04:36 Plt Count 254 K/mm3 (140-440) 06/09/20 04:36 Lymph % (Auto) 14.2 % (13.4-35.0) 06/09/20 04:36 [place] % (Auto) 9.5 % (0.0-7.3) H 06/09/20 04:36 Eos % (Auto) 0.5 % (0.0-4.3) 06/09/20 04:36 Baso % (Auto) 0.6 % (0.0-1.8) 06/09/20 04:36 Lymph # (Auto) 0.9 K/mm3 (1.2-5.4) L 06/09/20 04:36 [place] # (Auto) 0.6 K/mm3 (0.0-0.8) 06/09/20 04:36 Eos # (Auto) 0.0 K/mm3 (0.0-0.4) 06/09/20 04:36 Baso # (Auto) 0.0 K/mm3 (0.0-0.1) 06/09/20 04:36 Seg Neutrophils % 75.2 % (40.0-70.0) H 06/09/20 04:36 Seg Neutrophils # 4.5 K/mm3 (1.8-7.7) 06/09/20 04:36 PT 11.8 Sec. (12.2-14.9) L 06/08/20 14:23 INR 0.89 (0.87-1.13) 06/08/20 14:23 APTT 26.8 Sec. (24.2-36.6) 06/08/20 14:23 Activated Clotting Time 136 (74-137) 06/08/20 19:39 Sodium 135 mmol/L (137-145) L 06/09/20 04:36 Potassium 3.8 mmol/L (3.6-5.0) 06/09/20 04:36 Chloride 102.7 mmol/L (98-107) 06/09/20 04:36 Carbon Dioxide 23 mmol/L (22-30) 06/09/20 04:36 Anion Gap 13 mmol/L 06/09/20 04:36 BUN 10 mg/dL (9-20) 06/09/20 04:36 Creatinine 1.0 mg/dL (0.8-1.3) 06/09/20 04:36 Estimated GFR > 60 ml/min 06/09/20 04:36 BUN/Creatinine Ratio 10 % 06/09/20 04:36 Glucose 128 mg/dL (75-100) H 06/09/20 04:36 Hemoglobin A1c 5.1 % (4-6) 06/09/20 04:36 Calcium 8.5 mg/dL (8.4-10.2) 06/09/20 04:36 Magnesium 2.10 mg/dL (1.7-2.3) 06/08/20 14:23 Total Bilirubin 0.80 mg/dL (0.1-1.2) 06/09/20 04:36 Direct Bilirubin < 0.2 mg/dL (0-0.2) 06/08/20 14:23 Indirect Bilirubin 0.5 mg/dL 06/08/20 14:23 AST 113 units/L (5-40) H 06/09/20 04:36 ALT 29 units/L (7-56) 06/09/20 04:36 Alkaline Phosphatase 76 units/L (35-129) 06/09/20 04:36 Total Creatine Kinase 621 units/L (55-170) H 06/08/20 14:23 CK-MB (CK-2) 7.8 ng/mL (0.0-4.0) H 06/08/20 14:23 CK-MB (CK-2) Rel Index 1.2 (0-4) 06/08/20 14:23 Troponin T 2.140 ng/mL (0.00-0.029) H* D 06/08/20 22:50 NT-Pro-B Natriuret Pep 1621 pg/mL (0-900) H 06/08/20 14:23 Total Protein 6.0 g/dL (6.3-8.2) L 06/09/20 04:36 Albumin 3.2 g/dL (3.9-5) L 06/09/20 04:36 Albumin/Globulin Ratio 1.1 % 06/09/20 04:36 Triglycerides 62 mg/dL (2-149) 06/08/20 19:08 Cholesterol 194 mg/dL (50-199) 06/08/20 19:08 LDL Cholesterol Direct 113 mg/dL (50-130) 06/08/20 19:08 HDL Cholesterol 67 mg/dL (40-59) H 06/08/20 19:08 Cholesterol/HDL Ratio 2.89 % 06/08/20 19:08 Urine Color Straw (Yellow) 06/08/20 14:32 Urine Turbidity Clear (Clear) 06/08/20 14:32 Urine pH 7.0 (5.0-7.0) 06/08/20 14:32 Ur Specific [place] 1.049 (1.003-1.030) H 06/08/20 14:32 Urine Protein <15 mg/dl mg/dL (Negative) 06/08/20 14:32 Urine Glucose (UA) 50 mg/dL (Negative) 06/08/20 14:32 Urine Ketones Neg mg/dL (Negative) 06/08/20 14:32 Urine Blood Sm (Negative) 06/08/20 14:32 Urine Nitrite Neg (Negative) 06/08/20 14:32 Urine Bilirubin Neg (Negative) 06/08/20 14:32 Urine Urobilinogen < 2.0 mg/dL (<2.0) 06/08/20 14:32 Ur Leukocyte Esterase Neg (Negative) 06/08/20 14:32 Urine WBC (Auto) 2.0 /HPF (0.0-6.0) 06/08/20 14:32 Urine RBC (Auto) 4.0 /HPF (0.0-6.0) 06/08/20 14:32 Urine Mucus Few /HPF 06/08/20 14:32 Urine Opiates Screen Negative 06/08/20 14:32 Urine Methadone Screen Negative 06/08/20 14:32 Ur Barbiturates Screen Negative 06/08/20 14:32 Ur Phencyclidine Scrn Negative 06/08/20 14:32 Ur Amphetamines Screen Negative 06/08/20 14:32 U Benzodiazepines Scrn Positive 06/08/20 14:32 Urine Cocaine Screen Positive 06/08/20 14:32 U Marijuana (THC) Screen Negative 06/08/20 14:32 Drugs of Abuse Note Disclamer 06/08/20 14:32 Coronavirus (PCR) Negative (Negative) 06/09/20 Unknown [place]/IV: Voiding Method Urinal Active Medications - Current Medications Current Medications: Generic Name Dose Route Start Last Admin Trade Name Freq PRN Reason Stop Dose Admin Acetaminophen 650 mg 06/08/20 15:30 Acetaminophen 325 Mg Tab PO Q4H PRN Pain MILD(1-3)/Fever >100.5/PERRY Hydrocodone Bitart/Acetaminophen 1 each 06/08/20 16:56 06/09/20 17:55 Hydrocodone/Acetaminophen 5-325 Mg Tab PO 1 each Q8H PRN Administration Pain, Moderate (4-6) Aspirin 81 mg 06/09/20 10:00 06/09/20 09:52 Aspirin Ec 81 Mg Tab PO 81 mg QDAY ABDIAS Administration Atorvastatin Calcium 80 mg 06/08/20 22:00 06/09/20 22:49 Atorvastatin 40 Mg Tab PO 80 mg QHS ABDIAS Administration Clopidogrel Bisulfate 75 mg 06/10/20 10:00 Clopidogrel 75 Mg Tab PO QDAY ABDIAS Famotidine 20 mg 06/09/20 12:00 06/09/20 11:03 Famotidine 20 Mg Tab PO 20 mg QDAY ABDIAS Administration Metoprolol Succinate 50 mg 06/08/20 18:00 06/09/20 09:52 Metoprolol Succinate Xl 50 Mg Tab PO 50 mg QDAY ABDIAS Administration Morphine Sulfate 2 mg 06/08/20 22:38 06/09/20 23:05 Morphine 2 Mg/1 Ml Inj IV 2 mg Q4H PRN Administration Pain, Moderate (4-6) Ondansetron HCl 4 mg 06/08/20 15:30 Ondansetron 4 Mg/2 Ml Inj IV Q8H PRN Nausea And Vomiting Sodium Chloride 10 ml 06/08/20 22:00 06/09/20 22:50 Sodium Chloride 0.9% 10 Ml Flush Syringe IV 10 ml BID ABDIAS Administration Sodium Chloride 10 ml 06/08/20 15:30 Sodium Chloride 0.9% 10 Ml Flush Syringe IV PRN PRN LINE FLUSH
[2020-06-10 09:35] VITALS: BP 99/63
[2020-06-10] MEDS: CLOPIDOGREL 75 MG TAB PO SCH ×2 (10:25→11:38)
[2020-06-10] MEDS: FAMOTIDINE 20 MG TAB PO SCH (10:25)
[2020-06-10] MEDS: ASPIRIN EC 81 MG TAB PO SCH (10:25)
[2020-06-10] MEDS: METOPROLOL SUCCINATE XL 50 MG TAB PO SCH (10:26)
--- NOTE | 2020-06-10 10:29 | Discharge Summary ---
Providers - Providers Date of Admission: 06/08/20 15:09 Date of discharge: 06/10/20 Attending physician: QUYEN HORNER MD 06/08/20 15:09 Consult to Physician [CONS] Routine Comment: Consulting Provider: SHELTON NEGRO Physician Instructions: Reason For Exam: STEMI 06/08/20 16:56 Consult to Cardiac Rehabilitation [CONS] Routine Reason For Exam: Cardiac Rehab Evaluation 06/10/20 09:03 Consult to Case Management [CONS] Routine Services Needed at Discharge: Framing Mechanic Notified:: case management Comment:: Patient needs assistance with his medications. Primary care physician: CARE ANALYST Hospitalization Reason for admission: STEMI, in-stent thrombosis, cocaine Condition: Stable Hospital course: History of present illness: 55-year-old AAM who is status post a PCI at [place] approximately 3 weeks ago with 2 stents comes in for severe substernal chest pain since am.Pain is 10/10.Diahoresis present .No radiation.Some SOB present.Pain is sharp in nature .EMS sent a EKG which was consitent with Acute DE and COde STEMI was initiated.Was taken to medical laboratory technical officer directly.Had a obstructed diagonal which was stented.LAD stents were patent.Pain started 40 minutes prior to arrival. Patient continued to be quite anxious. He was somewhat diaphoretic. He was given a titrated dose of analgesia (morphine). He had already received 4 baby aspirin in the field. He was given 4000 units of heparin IV bolus. Patient denied any recent substance abuse. He states he "smokes a cigar every now and then". Hospital course This is a 55-year-old male with CAD, hypertension, medical noncompliance and polysubstance abuse who had a PCI at [place] approximately 3 weeks ago who presented to the emergency department on 06/08 with complaints of sharp chest pain rated at 10/10 with diaphoresis and shortness of breath. EMS sent an EKG which was consistent with acute DE and code STEMI was initiated and was taken to the [facility]. Left heart cath revealed obstructed diagonal branch which was stented, his mid LAD stent was patent however there was mild in-stent restenosis of the proximal left circumflex and there was chronic occlusion of the distal RCA with [id number] collaterals. His ejection fraction was 45%. STEMI s/p PCI with CORNEL[facility] x1 CAD Anterior STEMI (05/16/2020) Hypertension Polysubstance abuse 06/09: Patient complained of chest pain overnight and he received morphine. Patient does not complain of any chest pain, respiratory distress, nausea or vomiting this morning the time my examination. He is on room air. He complains of pain to groin entry site with palpation directly over site. Cardiology has cleared patient to transfer to the floor. His UDS was positive for cocaine and benzodiazepines. His morning the patient has slight hyponatremia and his hypokalemia has resolved. 06/10/2020 -Patient is admitted for STEMI due to in-stent thrombosis. Status post PCI with [facility]. Patient had stent recently and discharged with dual antiplatelet therapy but patient was noncompliant because could not afford it. Cardiology is following him. And will be discharged once cleared by cardiology. Case management consulted for medication assistance. -Case management is not able to arrange Brilinta and cardiology switch to Plavix. I give a prescription for aspirin and Plavix and other guideline medications for acute DE discharged. Patient was hemodynamically stable at the time of discharge. I have extensive counseling with the patient about to be compliant with his medications and he said he will be. He said he cannot afford Plavix. Disposition: [id number] TO HOME OR SELFCARE Final Discharge Diagnosis (Prints w/discharge instructions): In-stent thrombosis. STEMI. Cocaine abuse Time spent for discharge: 35-minutes - Discharge Diagnoses (1) STEMI (ST elevation myocardial infarction) Status: Acute Qualifiers: Involved coronary artery: other coronary artery Qualified Code(s): I21.29 - ST elevation (STEMI) myocardial infarction involving other sites (2) Cocaine abuse Status: Chronic (3) HTN (hypertension) Status: Chronic Qualifiers: Hypertension type: essential hypertension Qualified Code(s): I10 - Essential (primary) hypertension (4) Nicotine dependence Status: Chronic Qualifiers: Nicotine product type: cigarettes Core Measure Documentation - Palliative Care Palliative Care/ Comfort Measures: Not Applicable - Core Measures Any of the following diagnoses?: acute DE - Acute DE Discharge Requirements Aspirin at discharge: Yes PATRICK/ARB for LVSD if EF <40%: Yes Beta fe at discharge: Yes Statin for LDL = or >100 mg/dl on DC: Yes Exam - Physical Exam Narrative exam: Not in cardiopulmonary distress. The patient appeared well nourished and normally developed. Vital signs as documented. Head exam is unremarkable. No scleral icterus . Neck is without jugular venous distension, thyromegaly, or carotid bruits. Lungs are clear to auscultation. Cardiac exam reveals regular rate and Rhythm. Abdominal exam reveals normal bowel sounds, nontender, no organomegaly. Extremities are nonedematous and both femoral and pedal pulses are normal. ACCREDITATION MANAGER: Alert and oriented 3. No focal weakness. - Constitutional Vitals: Temp Pulse Resp BP Pulse Ox 98.4 F 89 18 99/63 97 06/10/20 09:26 06/10/20 09:26 06/10/20 09:26 06/10/20 09:26 06/10/20 09:26 Plan Activity: no restrictions Weight Bearing Status: Full Weight Bearing Diet: low cholesterol, low salt Health Concerns: Please take Plavix daily as prescribed by Doctor. Follow up with: PRIMARY MD CHRISTEL [Primary Care Provider] - 7 Days SHELTON NEGRO MD [Staff Physician] - 14 Days Prescriptions: AtorvaSTATin [Lipitor] 80 mg PO QHS #60 tablet Aspirin EC [Halfprin EC] 81 mg PO QDAY #30 tablet lisinopriL [Lisinopril] 10 mg PO DAILY #30 Metoprolol Xl [Metoprolol SUCCINATE ER TAB] 50 mg PO QDAY #30 tablet Clopidogrel [Plavix] 75 mg PO QDAY #30 tablet
--- NOTE | 2020-06-10 11:20 | Electrocardiograph Report ---
[facility] Test Date: 2020-06-08 Test Time: 14:23:34 Pat Name: MARIVEL MACARIO Department: Room: A463 Gender: M Extension Edger: MARION : 1965 Requested By: DONNA CURTIS Order Number: [id number] Reading MD: Donell Morrison Measurements Intervals [place] Rate: 112 P: 72 IA: 135 QRS: -47 QRSD: 75 T: QT: 352 QTc: 477 Interpretive Statements Sinus tachycardia Multiple ventricular premature complexes Probable left atrial enlargement Left anterior fascicular block Left ventricular hypertrophy Probable anterior infarct, age indeterminate Borderline ST elevation, lateral leads No previous ECG available for comparison Electronically Signed On 06-10-2020 11:19:43 EDT by Donell Morrison
--- NOTE | 2020-06-10 11:21 | Electrocardiograph Report ---
[facility] Test Date: 2020-06-08 Test Time: 18:18:32 Pat Name: MARIVEL MACARIO Department: Room: A463 Gender: M Grips: SANDEEP : 1965 Requested By: ALLEN SANTANA Order Number: [id number] Reading MD: Donell Morrison Measurements Intervals [place] Rate: 92 P: 60 CA: 152 QRS: -1 QRSD: 79 T: 133 QT: 367 QTc: 456 Interpretive Statements Sinus rhythm Ventricular premature complex Probable left atrial enlargement NONSPECIFIC REPOL ABNORMALITY, ANT-LAT LEADS No previous ECG available for comparison Electronically Signed On 06-10-2020 11:20:57 EDT by Donell Morrison
--- NOTE | 2020-06-10 11:23 | Electrocardiograph Report ---
[facility] Test Date: 2020-06-08 Test Time: 22:13:58 Pat Name: MARIVEL MACARIO Department: Room: A463 Gender: M Lodge Attendant: ANDERSON SEPTEMBER : 1965 Requested By: ALLEN SANTANA Order Number: [id number] Reading MD: Donell Morrison Measurements Intervals [place] Rate: 86 P: 58 OR: 147 QRS: 26 QRSD: 80 T: 141 QT: 406 QTc: 485 Interpretive Statements Sinus rhythm Paired ventricular premature complexes Probable anterior infarct, age indeterminate Lateral wall also involved No previous ECG available for comparison Electronically Signed On 06-10-2020 11:22:53 EDT by Donell Morrison
--- NOTE | 2020-06-10 11:24 | Progress Note ---
Assessment and Plan Acute [place] s/p PCI of the diagonal branch using Resolute drug eluting stents patent mid LAD stent mild in-stent restenosis of the proximal LCx chronic occlusion of the distal RCA with [id number] collaterals EF 45% Anterior STEMI at [facility] 05/16/2020 s/p PCI of the mid LAD LVEF 30% by echo 05/16/2020 noncompliant with Effient since discharged from [facility] 05/17/2020 Poly-substance abuse Recommend: Patient is unable to afford Brilinta, and is unable to receive prescription assistance. Therefore, will switch Brilinta to Plavix 75 mg once daily. Patient advised to continue medical therapy for coronary artery disease including DAPT without interruption. Encouraged smoking cessation. Stable cardiac rea, for discharge today with outpatient cardiac followup in 5-7 days. Subjective Date of service: 06/10/20 Interval history: Patient denies chest pain and denies shortness of breath. Patient is unable to afford Brilinta, and is unable to receive prescription assistance. Therefore, will switch Brilinta to Plavix 75 mg once daily. Objective Vital Signs Temp Pulse Pulse Resp BP Pulse Ox 06/10/20 10:26 89 99/63 06/10/20 09:26 98.4 F 89 18 99/63 97 06/10/20 08:24 97 06/10/20 04:17 98.7 F 94 H 20 121/70 95 06/10/20 00:11 98.8 F 97 H 20 126/78 96 06/09/20 21:27 98.4 F 83 20 113/70 95 06/09/20 21:14 86 06/09/20 20:30 85 13 111/69 96 06/09/20 20:20 86 26 H 101/62 98 06/09/20 20:10 80 17 104/64 90 06/09/20 20:00 83 31 H 105/66 97 06/09/20 19:50 84 30 H 105/66 98 06/09/20 19:40 84 26 H 104/65 98 06/09/20 19:30 87 27 H 104/65 97 06/09/20 19:20 84 15 108/69 99 06/09/20 19:10 85 16 116/80 99 06/09/20 19:00 88 13 106/68 99 06/09/20 18:50 82 27 H 107/55 97 06/09/20 18:40 86 24 131/73 97 06/09/20 18:30 87 28 H 131/73 98 06/09/20 18:20 81 26 H 116/80 100 06/09/20 18:10 90 24 123/84 97 06/09/20 18:00 89 20 123/84 98 06/09/20 17:50 93 H 21 137/41 98 06/09/20 17:40 84 26 H 120/68 99 06/09/20 17:30 87 26 H 120/68 98 06/09/20 17:20 87 19 114/74 99 06/09/20 17:10 92 H 28 H 117/74 97 06/09/20 17:00 86 28 H 117/74 98 06/09/20 16:50 85 20 117/74 98 06/09/20 16:40 91 H 18 124/78 98 06/09/20 16:30 91 H 17 124/78 98 06/09/20 16:20 91 H 15 132/79 98 06/09/20 16:10 97 H 14 106/57 95 06/09/20 16:00 66 85 27 H 106/57 97 06/09/20 15:50 83 18 101/63 98 06/09/20 15:40 86 22 133/77 98 06/09/20 15:30 88 19 133/77 99 06/09/20 15:20 81 16 132/81 98 06/09/20 15:10 93 H 28 H 126/92 98 06/09/20 15:00 90 26 H 118/76 98 06/09/20 14:50 86 20 120/75 98 06/09/20 14:40 97 H 13 118/76 98 06/09/20 14:30 84 17 118/76 98 06/09/20 14:20 87 23 121/79 98 06/09/20 14:10 86 16 118/82 99 06/09/20 14:00 87 18 118/82 98 06/09/20 13:50 86 15 121/79 99 06/09/20 13:40 91 H 20 119/76 98 06/09/20 13:30 84 14 119/76 99 06/09/20 13:20 85 25 H 112/68 99 06/09/20 13:10 83 17 112/84 98 06/09/20 13:00 84 13 112/84 76 L 06/09/20 12:50 91 H 15 106/73 99 06/09/20 12:40 85 11 L 115/82 98 06/09/20 12:30 87 21 117/72 100 06/09/20 12:20 79 22 102/80 99 06/09/20 12:10 87 20 117/72 96 06/09/20 12:00 98.8 F 95 H 95 H 26 H 117/72 100 06/09/20 11:50 85 25 H 117/72 100 06/09/20 11:40 82 18 121/79 99 06/09/20 11:30 89 12 121/79 97 06/09/20 11:21 84 06/09/20 11:20 82 23 113/75 98 - Physical Examination General: No Apparent Distress HEENT: Positive: PERRL Neck: Positive: trachea midline Cardiac: Positive: Reg Rate and Rhythm Lungs: Positive: Normal Breath Sounds Neuro: Positive: Grossly Intact Incision: Cardiac Cath Site (no hematoma of right groin) Extremities: Absent: edema
[2020-06-10] MEDS ORDERED: CLOPIDOGREL 75 MG TAB PO SCH (11:30)
== END 2020-06-10 12:04 | disposition home or self-care (01) | DRG 247 ==
LOC: ED 14:12 → CC1 15:09 → 4A 06-09 21:20
PROVIDERS: ADMIT Internal Medicine; ATTEND Internal Medicine
PROC: 4A023N7 Measurement of Cardiac Sampling and Pressure, Left Heart, Percutaneous Approach (ICD-10-PCS; principal; 2020-06-08)
PROC: 027034Z Dilation of Coronary Artery, One Artery with Drug-eluting Intraluminal Device, Percutaneous Approach (ICD-10-PCS; 2020-06-08)
PROC: B2151ZZ Fluoroscopy of Left Heart using Low Osmolar Contrast (ICD-10-PCS; 2020-06-08)
PROC: B2111ZZ Fluoroscopy of Multiple Coronary Arteries using Low Osmolar Contrast (ICD-10-PCS; 2020-06-08)
DX: I21.3 ST elevation (STEMI) myocardial infarction of unspecified site (principal); E87.1 Hypo-osmolality and hyponatremia; E44.1 Mild protein-calorie malnutrition; Z20.822 Contact with and (suspected) exposure to COVID-19; F17.200 Nicotine dependence, unspecified, uncomplicated; I10 Essential (primary) hypertension; E87.6 Hypokalemia; Z91.19 Patient's noncompliance with other medical treatment and regimen; F14.10 Cocaine abuse, uncomplicated
CPT/HCPCS: 36415; 71045; 80048; 80053; 80061; 80076; 80307; 81001; 82550; 82553; 83036; 83735; 83880; 84484; 85025; 85347; 85610; 85730; 92921; 92941; 93005; 93458; G0378; A9270-GY; C1725; C1760; C1769; C1874; C1887; C1894; C9606; J0171; J0461; J1644; J2001; J2250; J2270; J2370; J2405; J3010; J3246; J7030; Q9967; U0003